=== PATIENT | female | born 2000 | race African-American/Black ===

== ENCOUNTER 2023-06-19 07:43 | Emergency (ER) | payer MEDICAID ==
[~2023-06-19] VITALS: Ht 175.3 cm; Wt 125.0 kg
[2023-06-19 07:50] VITALS: O2SAT 98
[2023-06-19] MEDS ORDERED: POLY17PO3 MT (08:41)
[2023-06-19] MEDS ORDERED: NA P133E4 RC (08:41)
[2023-06-19 08:46] VITALS: BP 129/75; PULSE 78; RESP 19; TEMP 98
== END 2023-06-19 08:51 | disposition home or self-care (01) ==
LOC: ER 07:57
DX: K59.00 Constipation, unspecified (principal); F32.9 Major depressive disorder, single episode, unspecified
CPT/HCPCS: 99283; Z7610 ×3